=== PATIENT | female | born 1990 | race American Indian/Alaskan Native ===

== ENCOUNTER 2017-09-22 16:20 | Emergency (ER) | payer OTHER, BC ==
[2017-09-22 19:16] LABS: HCG Qualitative,Urine Negative (Negative)
--- NOTE | 2017-09-22 20:35 | XRay Report ---
FINAL REPORT PROCEDURE: XR HAND 3+V RT TECHNIQUE: RIGHT hand radiographs, AP, lateral, and oblique views. CPT [id number] HISTORY: INJURY TO RIGHT HAND pain COMPARISON: No prior studies are available for comparison. FINDINGS: Fracture (s) and/or Dislocation(s): None . Alignment: Normal . Joint space(s): Normal . Soft tissues: Normal . Bone mineralization: Normal . Foreign bodies: None . IMPRESSION: Normal Examination .
[2017-09-22] MEDS ORDERED: MOTRIN PO ONE (21:32)
--- NOTE | 2017-09-22 21:32 | Emergency Department Report ---
ED Upper Extremity Inj HPI - General Chief Complaint: Extremity Injury, Upper Stated Complaint: HAND/ARM PAIN Time Seen by Provider: 09/22/17 21:31 Source: patient Mode of arrival: Ambulatory Limitations: No Limitations - Related Data Allergies Allergy/AdvReac Type Severity Reaction Status Date / Time No Known Allergies Allergy Unverified 09/22/17 17:01 ED Review of Systems ROS: Stated complaint: HAND/ARM PAIN Other details as noted in HPI ED Past Medical Hx - Past Medical History Previous Medical History?: No - Social History Smoking Status: Current Every Day Smoker Substance Use Type: None ED Physical Exam - General Limitations: No Limitations ED Course Vital Signs 09/22/17 17:02 Temperature 98.8 F Pulse Rate 93 H Respiratory 18 Rate Blood Pressure 129/88 O2 Sat by Pulse 100 Oximetry Critical care attestation.: If time is entered above; I have spent that time in minutes in the direct care of this critically ill patient, excluding procedure time. ED Disposition Condition: Stable
[2017-09-22 22:14] VITALS: BP 112/72
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
== END 2017-09-22 22:42 | disposition home or self-care (01) ==
LOC: ED 16:20
DX: S63.91XA Sprain of unspecified part of right wrist and hand, initial encounter (principal); S13.4XXA Sprain of ligaments of cervical spine, initial encounter; F17.200 Nicotine dependence, unspecified, uncomplicated; V49.59XA Passenger injured in collision with other motor vehicles in traffic accident, initial encounter; Y93.89 Activity, other specified; Y92.89 Other specified places as the place of occurrence of the external cause; Y99.8 Other external cause status
CPT/HCPCS: 81025